=== PATIENT | male | born 1990 | race Caucasian/White ===

== ENCOUNTER 2024-09-14 22:27 | Emergency (ER) | payer OTHER ==
[~2024-09-14] VITALS: Ht 160 cm; Wt 68.0 kg
[~2024-09-14 22:27] MED LIST: CYCL10 PO
[2024-09-14 22:46] VITALS: BP 151/86
[2024-09-15] MEDS ORDERED: Doxycycline Mo100 M1 PO (02:50)
== END 2024-09-14 23:05 | disposition home or self-care (01) ==
LOC: ER 22:27
DX: S40.861A Insect bite (nonvenomous) of right upper arm, initial encounter (principal); L03.114 Cellulitis of left upper limb; W57.XXXA Bitten or stung by nonvenomous insect and other nonvenomous arthropods, initial encounter
CPT/HCPCS: 99281; A9270